=== PATIENT | male | born 1975 | race Caucasian/White ===

== ENCOUNTER 2018-01-24 21:51 | Emergency (ER) | payer MEDICAID ==
[2018-01-24] MEDS: DEXAMETHASONE 10 MG/ML 1 ML INJ IM (22:52)
[2018-01-24] MEDS: KETOROLAC 30 MG INJ IM (22:52)
== END 2018-01-25 00:24 | disposition home or self-care (01) ==
LOC: FTE 01-25 00:24
DX: H66.001 Acute suppurative otitis media without spontaneous rupture of ear drum, right ear (principal); E11.9 Type 2 diabetes mellitus without complications; H60.391 Other infective otitis externa, right ear
CPT/HCPCS: 96372; 99284-25; J1100

== ENCOUNTER 2018-03-02 21:14 | Emergency (ER) | payer MEDICAID ==
[2018-03-02 22:24] LABS: URINE BLOOD (Dip) POC Trace-intact (NEGATIVE); URINE KETONES (Dip) POC Negative (NEGATIVE); URINE LEUKOCYTE EST (Dip) POC Negative (NEGATIVE); URINE NITRITE (Dip) POC Negative (NEGATIVE); URINE TOTAL PROTEIN POC Negative (NEGATIVE)
[2018-03-02 23:31] LABS: ADD MAN DIFF? NO
[2018-03-02 23:34] LABS: WHITE BLOOD COUNT 5.9 10^3/ul (4.8-10.8)
[2018-03-02 23:34] LABS: BASOPHILS % 0.7 % (0.0-2.0); EOSINOPHILS # 0.4 10^3/ul (0.0-0.5); EOSINOPHILS % 7.4 % (0.0-7.0); HEMATOCRIT 43.1 % (42.0-52.0); HEMOGLOBIN 14.1 g/dl (14.0-18.0); LYMPHOCYTES % 49.9 % (15.0-51.0); MEAN CORPUSCULAR HEMOGLOBIN 26.6 pg (29.0-33.0); MEAN CORPUSCULAR HGB CONC 32.7 g/dl (32.0-37.0); MEAN CORPUSCULAR VOLUME 81.2 fl (82.0-101.0); MEAN PLATELET VOLUME 9.7 fl (7.4-10.4); MONOCYTE # 0.7 10^3/ul (0.3-0.9); MONOCYTES % 11.2 % (0.0-11.0); NEUTROPHIL # 1.8 10^3/ul (1.6-7.5); NEUTROPHILS % 30.5 % (39.0-77.0); PLATELET COUNT 218 10^3/UL (140-415); RED BLOOD COUNT 5.31 10^6/ul (4.70-6.10); RED CELL DISTRIBUTION WIDTH 13.2 % (11.5-14.5)
[2018-03-02 23:56] LABS: ALANINE AMINOTRANSFERASE 61 IU/L (13-69); ALBUMIN 3.9 g/dl (3.3-4.9); ALBUMIN/GLOBULIN RATIO 1.25; ALKALINE PHOSPHATASE 61 IU/L (42-121); ANION GAP 13 (8-16); ASPARTATE AMINO TRANSFERASE 41 IU/L (15-46); BILIRUBIN,INDIRECT 0.2 mg/dl (0-1.1); BILIRUBIN,TOTAL 0.2 mg/dl (0.2-1.3); BLOOD UREA NITROGEN 17 mg/dl (7-20); CALCIUM 9.2 mg/dl (8.4-10.2); CARBON DIOXIDE 26 mmol/L (21-31); CHLORIDE 107 mmol/L (97-110); GLUCOSE 147 mg/dl (70-220); POTASSIUM 3.4 mmol/L (3.5-5.1); SODIUM 143 mmol/L (135-144)
== END 2018-03-03 00:30 | disposition home or self-care (01) ==
LOC: FTE 03-03 00:30
DX: R10.30 Lower abdominal pain, unspecified (principal); E11.9 Type 2 diabetes mellitus without complications
CPT/HCPCS: 36415; 74176; 80053; 81003; 85025; 99284-25